=== PATIENT | female | born 1955 | race Caucasian/White ===

== ENCOUNTER 2017-10-01 07:52 | Day surgery (SDC) | payer OTHER ==
[2017-09-23 12:52] LABS: ABSOLUTE EOSINOPHILS # (AUTO) 0.2 10^3/uL (0.0-0.6); ABSOLUTE LYMPHOCYTES (AUTO) 2.7 10^3/uL (0.5-4.7); ABSOLUTE MONOCYTES (AUTO) 0.4 10^3/uL (0.1-1.4); ABSOLUTE NEUT (AUTO) 2.7 10^3/uL (1.7-8.2); BASOPHILS % (AUTO) 0.8 % (0-2); EOSINOPHILS % (AUTO) 2.9 % (0-6); HEMOGLOBIN 14.7 g/dL (12.0-15.5); LYMPHOCYTES % (AUTO) 44.8 % (13-45); MEAN CORPUSCULAR HEMOGLOBIN 30.2 pg (27.0-33.4); MEAN CORPUSCULAR HGB CONC 33.4 g/dL (32.0-36.0); MEAN CORPUSCULAR VOLUME 91 fl (80-97); MONOCYTES % (AUTO) 7.1 % (3-13); PLATELET COUNT 212 10^3/uL (150-450); RED BLOOD COUNT 4.86 10^6/uL (3.72-5.28); RED CELL DISTRIBUTION WIDTH 13.4 % (11.5-14.0); SEGMENTED NEUTROPHILS % (AUTO) 44.4 % (42-78); TOTAL CELLS COUNTED % (AUTO) 100 %; WHITE BLOOD COUNT 6.1 10^3/uL (4.0-10.5)
[2017-09-23 13:09] LABS: APPEARANCE,URINE SLIGHTLY-CLOUDY; BILIRUBIN,URINE NEGATIVE (NEGATIVE); COLOR,URINE YELLOW; GLUCOSE, URINE NEGATIVE (NEGATIVE); KETONES,URINE NEGATIVE (NEGATIVE); LEUKOCYTE ESTERASE,URINE LARGE (NEGATIVE); NITRITE,URINE NEGATIVE (NEGATIVE); PROTEIN,URINE NEGATIVE (NEGATIVE); URINE SPECIFIC GRAVITY 1.017
[2017-09-23 13:10] LABS: ANION GAP 10 (5-19); BLOOD UREA NITROGEN 15 mg/dL (7-20); CALCIUM 9.7 mg/dL (8.4-10.2); CARBON DIOXIDE 32 mmol/L (22-30); CHLORIDE 100 mmol/L (98-107); GLUCOSE 85 mg/dL (75-110); POTASSIUM 4.2 mmol/L (3.6-5.0); SODIUM 141.7 mmol/L (137-145)
--- NOTE | 2017-09-23 14:03 | EKG REPORT ---
SEVERITY:- NORMAL ECG - SINUS RHYTHM : Confirmed by: Edouard Hermosillo MD 23-Sep-2017 14:02:40
[~2017-10-01 07:52] MED LIST: CEFAZOLIN 2 GM/D5W RTU 2 GM/50 ML RTUPB IV PRN; LACTATED RINGERS 1000 ML IV PRN; LIDOCAINE 0.5% INJ-PF (5 MG/ML) 50 ML SDV SUBCUT PRN
[2017-10-01] MEDS ORDERED: EPINEPHRINE INJ/PF 1 MG/1 ML AMPULE ONE ×2 (08:08→08:10)
[2017-10-01] MEDS ORDERED: BUPIVACAINE HCL 0.5 % INJ/PF 30 ML SDV ONE (08:08)
[2017-10-01] MEDS ORDERED: FENTANYL CITRATE INJ/PF 250 MCG/5 ML AMPULE ONE (10:25)
[2017-10-01] MEDS ORDERED: LIDOCAINE 2% INJ-PF (20 MG/ML) 10 ML AMPUL ONE (10:25)
[2017-10-01] MEDS ORDERED: ONDANSETRON HCL INJ/PF 4 MG/2 ML SDV ONE (10:26)
[2017-10-01] MEDS ORDERED: PROPOFOL INJ 200 MG/20 ML VIAL IV ONE (10:26)
[2017-10-01] MEDS ORDERED: DEXAMETHASONE SOD PHOSPHATE INJ 4 MG/1 ML VIAL ONE (10:26)
[2017-10-01] MEDS ORDERED: EPHEDRINE SULFATE INJ 50 MG/1 ML AMPULE ONE (10:26)
[2017-10-01] MEDS ORDERED: MIDAZOLAM 2 MG/2 ML INJ ONE (10:26)
[2017-10-01] MEDS ORDERED: ACETAMINOPHEN 100 ML IV ONE (10:26)
[2017-10-01] MEDS ORDERED: ONDANSETRON HCL INJ/PF 4 MG/2 ML SDV IV PRN (12:39)
[2017-10-01] MEDS ORDERED: DIPHENHYDRAMINE HCL 50 MG/ML VIAL IV PRN (12:39)
[2017-10-01] MEDS ORDERED: MORPHINE SULFATE 10 MG/ML INJ IV PRN (12:39)
[2017-10-01] MEDS ORDERED: OXYCODONE-ACETAMINOPHEN 5-325 MG TABLET PO PRN ×2 (12:39)
[2017-10-01] MEDS ORDERED: PROMETHAZINE HCL INJ 25 MG/1 ML VIAL IV PRN ×2 (12:39)
[2017-10-01] MEDS ORDERED: FENTANYL CITRATE INJ/PF 100 MCG/2 ML AMPUL IV PRN ×3 (12:39)
[2017-10-01] MEDS ORDERED: MEPERIDINE HCL/PF INJ 25 MG/1 ML DISP.SYRIN IV PRN (12:39)
[2017-10-01] MEDS ORDERED: MORPHINE SULFATE 10 MG/ML INJ ONE (12:54)
[2017-10-01] MEDS: MEPERIDINE HCL/PF INJ 25 MG/1 ML DISP.SYRIN ONE ×2 (13:47→13:52)
[2017-10-01] MEDS: FENTANYL CITRATE INJ/PF 100 MCG/2 ML AMPUL ONE ×2 (13:49→14:00)
--- NOTE | 2017-10-01 13:56 | Operative Report ---
Operative Report DATE OF SURGERY: 10/01/17 PREOPERATIVE DIAGNOSIS: Right rotator cuff tear and glenohumeral joint arthritis POSTOPERATIVE DIAGNOSIS: Same OPERATION: Right shoulder arthroscopic rotator cuff repair and debridement of glenohumeral joint arthritis SURGEON: SHADY SHAFFER ANESTHESIA: GA TISSUE REMOVED OR ALTERED: None COMPLICATIONS: None ESTIMATED BLOOD LOSS: 10 mL INTRAOPERATIVE FINDINGS: As above PROCEDURE: Patient was brought to the operating room after receiving preoperative antibiotics. She was induced and intubated in supine position. She was then secured in a beachchair position where the right shoulder was prepped and draped in a normal sterile surgical fashion. Timeout was done identifying the right shoulder as the correct site. Spinal needle was introduced to the shoulder via the posterior portal and distended the capsule with sterile saline solution. 11 blade was used to establish the portal and scope was introduced. A bautista of fluid showed proper placement of the scope. I used her previous anterior portal and lateral portal for the procedure. These were established 11 blade. Cannula was introduced in the anterior portal and the probe was used to show that the patient had already torn her long head of the biceps and retracted. The glenohumeral joint showed grade 4 and grade 3 changes diffusely. There is loose flaps of cartilage. Rotator cuff is mostly intact posteriorly but anteriorly was a small little pinpoint hole. The shaver was used then to debride the glenoid and humeral head arthritis. After debriding remaining cartilage was stable. We redirected the scope to the subacromial space and through the lateral portal was able to clean the subacromial space and visualize the tear superiorly. We did a speed test type fixation using fiber tape and arthroscopic scorpion instrumentation to then pass the fiber tape through the rotator cuff tear. The 4.0 shaver was used then to debride the greater tuberosity and then the fiber tape was then secured laterally using a swivel lock. This was secured and make sure that had good fixation. I pulled on the stay sutures and the anchor did not move. The tendon was flat against the greater tuberosity right over the tear. Suture had good tension when probed. Remaining rotator cuff is intact. At this point fluid from the shoulder was removed and then the 3 portal sites were closed with 3-0 Monocryl. Steri-Strips were applied and then covered by 4 x 4 dressing. Dressings were secured with Medipore tape. Drapes were removed and the patient was awakened and sent to PACU in stable condition.
--- NOTE | 2017-10-01 14:02 | Discharge Summary ---
Discharge Summary (SDC) - Discharge Final Diagnosis: Status post rotator cuff repair revision and debridement or chondroplasty of glenohumeral joint of her right shoulder Date of Surgery: 10/01/17 Discharge Date: 10/01/17 Condition: Good Treatment or Instructions: Patient is instructed to follow up in 10-14 days. Patient instructed to remove dressing in 4 days then can shower and apply Band- Aids as needed. Patient to wear sling for comfort but okay to remove for shower and pendulum exercises. Pendulum exercises are instructed to be done 3 times a day ideally with breakfast, lunch, dinners and showers. Patient instructed to call if there is any signs of redness or drainage fevers or chills. Discharge Diet: As Tolerated Respiratory Treatments at Home: Deep Breathing/Coughing Discharge Activity: No Lifting/Push/Pulling, Slowly Increase Activity, Walk Frequently Home Care Assistance: None Needed Report the Following to Your Physician Immediately: Shortness of Breath, Vomiting, Increase in Pain, Fever over 101 Degrees, Unusual Bleeding, Redness, Swelling, Warmth, Increased Soreness, Drainage-Vázquez, Drainage-Green, Drainage- Foul Smelling
[2017-10-01] MEDS ORDERED: HYDROMORPHONE HCL 2 MG TABLET PO PRN (14:09)
[2017-10-01] MEDS ORDERED: SUCCINYLCHOLINE CHLORIDE INJ 200 MG/10 ML VIAL ONE (14:54)
[2017-10-01] MEDS ORDERED: ROCURONIUM BROMIDE INJ 50 MG/5 ML VIAL IV ONE (14:54)
[2017-10-01 16:32] VITALS: BP 118/86
== END 2017-10-01 16:10 | disposition home or self-care (01) ==
LOC: OROUT 07:52
PROVIDERS: ATTEND Orthopaedic Surgery
PROC: 0LM14ZZ Reattachment of Right Shoulder Tendon, Percutaneous Endoscopic Approach (ICD-10-PCS; principal; 2017-10-01 10:00)
DX: S46.111S Strain of muscle, fascia and tendon of long head of biceps, right arm, sequela (principal); X58.XXXS Exposure to other specified factors, sequela; M75.101 Unspecified rotator cuff tear or rupture of right shoulder, not specified as traumatic; M25.519 Pain in unspecified shoulder; M19.011 Primary osteoarthritis, right shoulder; Z79.899 Other long term (current) drug therapy
CPT/HCPCS: 93005; 36415; 85025; 80048; 81001; 93010; 29827; C1713; J2250; J3490 ×3; J1100; J0171; J3010 ×2; J2175; J2270; J0330; J2405; J2704; J0690; J0131; 1630